=== PATIENT | male | born 1975 | race Two or more races ===

== ENCOUNTER 2016-07-27 12:31 | Emergency (ER) | payer MEDICAID ==
--- NOTE | 2016-07-27 12:37 | EDPHY ---
H & P Stated Complaint: Headache, lightheaded Time Seen by Provider: 07/27/16 12:50 HPI/ROS: CHIEF COMPLAINT: Headache lightheadedness HISTORY OF PRESENT ILLNESS: This is a 40-year-old male presenting to the emergency department via EMS. EMS states patient was at work when started feeling lightheaded with headache. Patient states he has a history of migraines initially diagnosed a year ago, started seeing a neurologist 6 weeks ago placed on nortriptyline 10 mg which seemed to help patient had not had a migraine until yesterday. Patient stated neurologist increased nortriptyline 2 weeks ago to 25 mg which patient's stated he thought that would maybe resolve his headaches completely, but yesterday while at work around noon he had a headache and started feeling dizzy the but continued to work. 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 Mr. chase at this time is reporting a 4/10 headache, photophobia has resolved no nausea, headache is similar to the previous headaches with no changes in pain. REVIEW OF SYSTEMS: Constitutional: No fever, no chills. Eyes: No discharge. Light sensitivity which has resolved ENT: No sore throat. Cardiovascular: No chest pain, no palpitations. Respiratory: No cough. shortness of breath. Gastrointestinal: No abdominal pain, no vomiting. Genitourinary: No hematuria. Musculoskeletal: No back pain. Skin: No rashes. Neurological: headache. Dizziness Source: Patient, Family, EMS - Medical/Surgical History Hx Diabetes: Yes - Social History Smoking Status: Heavy smoker - Physical Exam Exam: General Appearance: Alert, no distress. Eyes: PERRLA, EOMI . no pallor or injection. ENT, Mouth: Mucous membranes moist. Respiratory: There are no retractions, lungs are clear to auscultation. Cardiovascular: Regular rate and rhythm. Gastrointestinal: Abdomen is soft and nontender, no masses, bowel sounds normal. Neurological: No focal deficits. 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 Musculoskeletal: Neck is supple nontender. Extremities: symmetrical, full range of motion. Psychiatric: Patient is oriented X 3, there is no agitation. Constitutional: Initial Vital Signs Temperature (C) 37.1 C 07/27/16 12:39 Heart Rate 101 H 07/27/16 12:39 Respiratory Rate 16 07/27/16 12:39 Blood Pressure 122/77 H 07/27/16 12:39 O2 Sat (%) 98 07/27/16 12:39 O2 Delivery Mode Room Air O2 (L/minute) 2 Allergies/Adverse Reactions: No Known Allergies Allergy (Unverified 08/05/15 06:11) Home Medications: Medication Instructions Recorded Gemfibrozil [Lopid] 600 mg PO BID 07/14/15 Levothyroxine [Synthroid] 100 mcg PO DAILY06 07/14/15 amLODIPine BESYLATE [Norvasc] 10 mg PO DAILY 07/14/15 glyBURIDE [Micronase] 2.5 mg PO BID 07/14/15 metFORMIN HCL [Glucophage] 100 mg PO BID 07/14/15 Hydrocodone/Acetaminophen [Hurt 1 - 2 each PO Q6 PRN #20 tablet 08/06/15 7.5-325 Tablet] Nortriptyline HCl 10 mg PO DAILY #20 capsule 07/27/16 Medical Decision Making - Diagnostics Imaging Results: Imaging Impressions Brain MRI 07/27/16 13:57 Impression: There are a couple small foci of abnormal signal intensity in the deep hemispheric white matter bilaterally which is nonspecific and can be seen with small vessel ischemic disease or gliosis from migraine or trauma. This most likely consideration would be postinfectious or postinflammatory etiology. No evidence for acute infarct or abnormal enhancement. Results called and discussed with Clarisse Mckinney NP on 07/27/2016 at 1528 hours. ED Course/Re-evaluation: Discussed ED plan of care: EKG, CBC, BMP, troponin, 1330: IV fluids, IV Benadryl IV Toradol IV Decadron 1400: Spoke with Gerardo TREVIÑO with Neurology group, MRI W/WO contrast ordered. Discussed this plan with patient, he is in agreement 1410: Patient states doing better reports a 0/10 headache, no blurred vision, no neuro changes. 1530: Discussed MRI with Dr. Sanchez no acute findings. Discussed all results with patient, discharge home---> stable, discussed discharge instructions with patient Differential Diagnosis: Other differential diagnosis considered but not limited to CVA, subarachnoid hemorrhage and mass - Data Points Laboratory Results: Laboratory Results 07/27/16 12:34 07/27/16 12:34 07/27/16 07/27/16 12:34 12:34 WBC 11.36 10^3/uL H 10^3/uL (3.80-9.50) RBC 4.76 10^6/uL 10^6/uL (4.40-6.38) Hgb 16.0 g/dL g/dL (13.7-17.5) Hct 46.6 % % (40.0-51.0) MCV 97.9 fL fL (81.5-99.8) MCH 33.6 pg pg (27.9-34.1) MCHC 34.3 g/dL g/dL (32.4-36.7) RDW 12.7 % % (11.5-15.2) Plt Count 255 10^3/uL 10^3/uL (150-400) MPV 10.0 fL fL (8.7-11.7) Neut % (Auto) 58.9 % % (39.3-74.2) Lymph % (Auto) 32.5 % % (15.0-45.0) [place] % (Auto) 7.3 % % (4.5-13.0) Eos % (Auto) 0.7 % % (0.6-7.6) Baso % (Auto) 0.4 % % (0.3-1.7) Nucleat RBC Rel Count 0.0 % % (0.0-0.2) Absolute Neuts (auto) 6.70 10^3/uL H 10^3/uL (1.70-6.50) Absolute Lymphs (auto) 3.69 10^3/uL H 10^3/uL (1.00-3.00) Absolute Monos (auto) 0.83 10^3/uL H 10^3/uL (0.30-0.80) Absolute Eos (auto) 0.08 10^3/uL 10^3/uL (0.03-0.40) Absolute Basos (auto) 0.04 10^3/uL 10^3/uL (0.02-0.10) Absolute Nucleated RBC 0.00 10^3/uL 10^3/uL (0-0.01) Immature Gran % 0.2 % % (0.0-1.1) Immature Gran # 0.02 10^3/uL 10^3/uL (0.00-0.10) Sodium 139 mEq/L mEq/L (134-144) Potassium 4.6 mEq/L mEq/L (3.5-5.2) Chloride 101 mEq/L mEq/L (97-110) Carbon Dioxide 21 mEq/l L mEq/l (22-31) Anion Gap 17 mEq/L H mEq/L (8-16) BUN 27 mg/dL H mg/dL (7-23) Creatinine 1.7 mg/dL H mg/dL (0.7-1.3) Estimated GFR 45 Glucose 122 mg/dL H mg/dL (70-100) Calcium 11.0 mg/dL H mg/dL (8.5-10.4) Phosphorus 3.1 mg/dL mg/dL (2.5-4.5) Total Bilirubin 1.1 mg/dL mg/dL (0.1-1.4) AST 25 IU/L IU/L (17-59) ALT 28 IU/L IU/L (21-72) Alkaline Phosphatase 103 IU/L IU/L (38-126) Troponin I < 0.012 ng/mL ng/mL (0-0.034) Total Protein 8.7 g/dL H g/dL (6.3-8.2) Albumin 5.0 g/dL g/dL (3.5-5.0) Medications Given: Discontinued Medications Dexamethasone (Decadron Injection) 10 mg IVP EDNOW ONE Stop: 07/27/16 13:16 Last Admin: 07/27/16 13:35 Dose: 10 mg Diphenhydramine HCl (Benadryl Injection) 25 mg IVP EDNOW ONE Stop: 07/27/16 13:16 Last Admin: 07/27/16 13:35 Dose: 25 mg Sodium Chloride (Ns) 1,000 mls @ 0 mls/hr IV ONCE ONE PRN Reason: Wide Open Stop: 07/27/16 13:35 Last Admin: 07/27/16 13:35 Dose: 1,000 mls Metoclopramide HCl (Reglan Injection) 10 mg IVP EDNOW ONE Stop: 07/27/16 13:16 Last Admin: 07/27/16 13:35 Dose: 10 mg Departure - Departure Disposition: Home, Routine, Self-Care Clinical Impression: Migraine Qualifiers: Migraine type: other Status migrainosus presence: without status migrainosus Intractability: not intractable Qualified Code(s): G43.809 - Other migraine, not intractable, without status migrainosus Condition: Good Instructions: Migraine Headache (ED) Additional Instructions: Discharge instructions 1. MRI does not show any acute findings 2. The spoke with Gerardo TREVIÑO with Neurology, decrease nortriptyline back to 10 mg daily, follow up with his office on your scheduled report appointment this month 3. If at any point time symptoms change or worsen, such as: Vision loss, altered mental status, chest pain passing out return to the ER Referrals: Patient,NotPresent [Unknown] - As per Instructions Gerardo Barakat PA [Physician Chainstitch Sewing Machine Operator] - As per Instructions Prescriptions: Nortriptyline HCl 10 mg PO DAILY #20 capsule
[2016-07-27 13:00] LABS: % IMMATURE GRANULYOCYTES 0.2 % (0.0-1.1); ABSOLUTE IMMATURE GRANULOCYTES 0.02 10^3/uL (0.00-0.10); ADD DIFF? NO; ADD MORPH? NO; ADD SCAN? NO; ATYPICAL LYMPHOCYTE FLAG 30 (0-99); FRAGMENT RBC FLAG 0 (0-99); HEMATOCRIT 46.6 % (40.0-51.0); LEFT SHIFT FLG 0 (0-99); LIPEMIA HEMOLYSIS FLAG 90 (0-99); MEAN CELL HEMOGLOBIN 33.6 pg (27.9-34.1); MEAN CELL HEMOGLOBIN CONCENTR. 34.3 g/dL (32.4-36.7); MEAN CELL VOLUME 97.9 fL (81.5-99.8); PLATELET CLUMPS FLAG 10 (0-99); PLATELET COUNT 255 10^3/uL (150-400); RED BLOOD CELL COUNT 4.76 10^6/uL (4.40-6.38); RED CELL DISTRIBUTION WIDTH 12.7 % (11.5-15.2)
--- NOTE | 2016-07-27 13:01 | CPEKG ---
Heart Rate: 98 RR Interval: 612 P-R Interval: 160 QRSD Interval: 90 QT Interval: 332 QTC Interval: 424 P [place]: 12 QRS [place]: 88 T Wave [place]: 54 EKG Severity - OTHERWISE NORMAL ECG - EKG Impression: SINUS RHYTHM EKG Impression: LOW VOLTAGE IN FRONTAL LEADS EKG Impression: ST ELEV, PROBABLE NORMAL EARLY REPOL PATTERN Electronically Signed By: Henry Land 28-Jul-2016 16:29:45
[2016-07-27] MEDS ORDERED: DEXAMETHASONE 10 MG/ML VIAL IVP ONE (13:15)
[2016-07-27] MEDS ORDERED: METOCLOPRAMIDE 10 MG/2 ML VIAL IVP ONE (13:15)
[2016-07-27 13:16] LABS: ALANINE AMINOTRANSFERASE 28 IU/L (21-72); ALKALINE PHOSPHATASE 103 IU/L (38-126); ANION GAP 17 mEq/L (8-16); ASPARTATE AMINOTRANSFERASE 25 IU/L (17-59); BILIRUBIN,TOTAL 1.1 mg/dL (0.1-1.4); CARBON DIOXIDE 21 mEq/l (22-31); CHLORIDE 101 mEq/L (97-110); CREATININE 1.7 mg/dL (0.7-1.3); GLOMERULAR FILTRATION RATE 45; GLUCOSE 122 mg/dL (70-100); POTASSIUM 4.6 mEq/L (3.5-5.2); SODIUM 139 mEq/L (134-144); TOTAL PROTEIN 8.7 g/dL (6.3-8.2)
[2016-07-27 13:26] LABS: TROPONIN I < 0.012 ng/mL (0-0.034)
[2016-07-27] MEDS ORDERED: NS 1,000 ML IV ONE (13:34)
[2016-07-27 13:47] VITALS: O2SAT 95
[2016-07-27] MEDS ORDERED: GADOBUTROL 10 ML VIAL IVP ONE (15:02)
[2016-07-27 15:58] VITALS: BP 124/80; PULSE 92; RESP 20; TEMP 98.6
== END 2016-07-27 15:58 | disposition home or self-care (01) ==
LOC: EDUNIT#
DX: G43.809 Other migraine, not intractable, without status migrainosus (principal); E11.9 Type 2 diabetes mellitus without complications; F17.200 Nicotine dependence, unspecified, uncomplicated; Z79.84 Long term (current) use of oral hypoglycemic drugs
CPT/HCPCS: 96374; A9585; J1200; J2765